=== PATIENT | female | born 1990 | race Hispanic/Latino ===

== ENCOUNTER 2017-12-06 22:44 | Emergency (ER) | payer BC ==
[2017-12-06 23:05] VITALS: RESP 18
[2017-12-07 00:10] LABS: BASO # 0.1 K/uL (0.0-0.2); BASO % 0.9 % (0.0-2.0); EOS # 0.1 K/uL (0.0-0.7); HEMOGLOBIN 12.2 g/dL (12.0-16.0); LYMPH % 28.7 % (20.0-40.0); MEAN CELL VOLUME 94.1 fl (81.0-99.0); MEAN CORPUSCULAR HEMOGLOBIN 33.2 pg (27.0-31.0); MEAN CORPUSCULAR HGB CONC 35.3 g/dL (33.0-37.0); MEAN PLATELET VOLUME 8.3 fl (7.2-11.7); MONO # 0.8 K/uL (0.0-0.8); MONO % 7.4 % (0.0-10.0); NEUT # 6.4 K/uL (1.8-7.0); NRBC % 0.1 % (0.0-0.0); RBC 3.68 Mil/uL (3.80-5.20); RED CELL DISTRIBUTION WIDTH 12.3 % (11.5-14.5); WHITE BLOOD COUNT 10.3 K/uL (4.8-10.8)
[2017-12-07 00:11] LABS: SQUAMOUS EPITHIAL 1 /hpf (0-5); URINE BILIRUBIN NEGATIVE (NEGATIVE); URINE BLOOD MODERATE (NEGATIVE); URINE CLARITY CLEAR (Clear); URINE COLOR STRAW (YELLOW); URINE GLUCOSE (UA) NEG (Normal); URINE LEUKOCYTE ESTERASE NEG Leu/uL (Negative); URINE PROTEIN NEGATIVE (NEGATIVE); URINE UROBILINOGEN 0.2-1.0 mg/dL (0.2-1.0)
[2017-12-07 00:19] LABS: ALB/GLOB RATIO 1.2 (1.0-2.1); ALBUMIN 3.7 g/dL (3.5-5.0); ALT/SGPT 28 U/L (9-52); AST/SGOT 17 U/L (14-36); BLOOD UREA NITROGEN 10 mg/dl (7-17); CALCIUM 9.6 mg/dL (8.4-10.2); GFR AFRICAN-AMERICAN > 60; GFR NON-AFRICAN AMERICAN > 60
--- NOTE | 2017-12-07 01:18 | ED PDOC ---
HPI: Female Pain Time Seen by Provider: 12/06/17 23:00 Chief Complaint (Nursing): Female Genitourinary Chief Complaint (Provider): Female Genitourinary History Per: Patient History/Exam Limitations: no limitations Onset/Duration Of Symptoms: Hrs (earlier tonight) Current Symptoms Are (Timing): Still Present Associated Symptoms: denies: Fever Additional Complaint(s): 27 year old female presents to ED with complaints of vaginal bleeding since earlier tonight and is currently 11 weeks () with no past medical history. Describes the bleeding as light spotting. (-) fever. PCP: Jake Montesinos Abnormal Vaginal Bleeding: Yes : 1 Para: 0 Miscarriage: 0 Past Medical History Reviewed: Historical Data, Nursing Documentation, Vital Signs Vital Signs: Last Vital Signs Temp 97.9 F 12/06/17 23:04 Pulse 78 12/06/17 23:04 Resp 18 12/06/17 23:04 BP 157/87 H 12/06/17 23:04 Pulse Ox 99 12/06/17 23:04 - Medical History PMH: No Chronic Diseases - Surgical History Surgical History: No Surg Hx - Family History Family History: States: Unknown Family Hx - Living Arrangements Living Arrangements: With Family - Social History Current smoker - smoking cessation education provided: No Ex-Smoker (has not smoked in the last 12 months): No Alcohol: None Drugs: Denies - Allergies Allergies/Adverse Reactions: Allergies Allergy/AdvReac Type Severity Reaction Status Date / Time Penicillins Allergy RASH Verified 12/06/17 23:04 Review of Systems ROS Statement: Except As Marked, All Systems Reviewed And Found Negative Constitutional: Negative for: Fever Genitourinary Female: Positive for: Vaginal Bleeding Physical Exam - Reviewed Nursing Documentation Reviewed: Yes Vital Signs Reviewed: Yes - Physical Exam Appears: Positive for: Non-toxic Skin: Positive for: Normal Color, Warm, Dry Eye Exam: Positive for: Normal appearance ENT: Positive for: Normal ENT Inspection Neck: Positive for: Normal, Painless ROM, Supple Cardiovascular/Chest: Positive for: Regular Rate, Rhythm. Negative for: Murmur Respiratory: Positive for: Normal Breath Sounds. Negative for: Respiratory Distress Gastrointestinal/Abdominal: Positive for: Normal Exam, Soft. Negative for: Tenderness Pelvic Exam: Positive for: External Exam Normal (Animal Pathologist: Sharon Leary), Blood, Other (Oss is closed). Negative for: No Cerv. Motion Tender, Tender Adnexa, Tender Uterus Neurologic/Psych: Positive for: Alert, Oriented. Negative for: Motor/Sensory Deficits - Laboratory Results Result Diagrams: 12/06/17 23:56 12/06/17 23:56 - ECG O2 Sat by Pulse Oximetry: 99 (RA) Pulse Ox Interpretation: Normal Medical Decision Making Medical Decision Makin Initial impression: threatened AB Initial plan: * T&S * BETA HCG QUANT * Labs * Urine C&S * UA * US OB PREG, LIMITED 0120 Labs reviewed: no clinically significant abnormality with exception of mild hypokalemia. 0140 US FINDINGS: Fetus: Single live intrauterine with fetus corresponding to gestational age of 11 weeks and 3 days. Obtained heart rate is 164 bpm. Placenta: Small subchorionic hematoma is noted, measuring 2.1 x 1.1 cm. Cervix: Cervix is closed and measures 4.8 cm. Adnexa: Right ovary not identified. Left ovary is normal in size and demonstrates vascular flow. IMPRESSION: 1. Single live intrauterine with fetus corresponding to gestational age of 11 weeks and 3 days. Obtained heart rate is 164 bpm. 2. Small subchorionic hematoma is noted, measuring 2.1 x 1.1 cm. 0200 Patient dw patient the results and answered questions pt is stable for discharge home with directions to follow up with [facility]. ecourage high potassium diet and follow up with your docorin 48 hours. Discussed precautions about bleed w patient. Dx: threatened , subchorionic hematoma Condition: stable Scribe Attestation: Documented by Alexsandra Smith, acting as a scribe for Rosalina Hatfield MD. Provider Scribe Attestation: All medical record entries made by the Scribe were at my direction and personally dictated by me. I have reviewed the chart and agree that the record accurately reflects my personal performance of the history, physical exam, medical decision making, and the department course for this patient. I have also personally directed, reviewed, and agree with the discharge instructions and disposition. Disposition - Clinical Impression Clinical Impression: Threatened , Subchorionic hematoma - Patient ED Disposition Is Patient to be Admitted: No Counseled Patient/Family Regarding: Studies Performed, Diagnosis, Need For Followup - Disposition Disposition: Routine/Home Disposition Time: 02:00 Condition: IMPROVED Additional Instructions: follow up with your obgyn within two days eat a high potassium diet pelvic rest return to the ED with any worsening or concerning symptoms Instructions: Threatened Miscarriage, Threatened Miscarriage (DC) Forms: [employer] ([place])
[2017-12-07 03:19] VITALS: BP 134/70; PULSE 84; TEMP 98.5
[2017-12-07 05:48] VITALS: O2SAT 99
--- NOTE | 2017-12-07 11:27 | US ---
PROCEDURE: OB Pelvic Ultrasound HISTORY: Bleeding in . LMP: 09/17/2017 COMPARISON: None available. FINDINGS: UTERUS: Gestational sac: Single intrauterine gestation: MSD = 5.13cm = 10w 6d pole: CRL = 4.91 cm = 11 w 6d Heart rate: 164 bpm. age (Ultrasound estimated): 11 weeks 3 days 0 weeks 6 days Ghazal-gestational hemorrhage: Small subchorionic hemorrhage = 2.1 x 1.1 cm located along the lower uterus. . . Date of delivery (Ultrasound estimated) : 06/25/2018 Uterus measures cm. Normal in size and appearance. CERVIX: Measures 4.8 cm. Long and closed. No cervical abnormality seen. RIGHT OVARY: Not visualized. LEFT OVARY: Measures approximately 3.3 x1.9 x 2.5 cm. No solid mass. Normal flow. FREE FLUID: None. OTHER FINDINGS: None. IMPRESSION: Single living intrauterine gestation estimated at approximately 11 weeks 3 days 0 weeks 6 days. Heart rate document at 164 BPM. PELON based on average ultrasound age = 0106/25/2018. Small subchorionic hemorrhage as above. . Follow-up OB ultrasound recommended to assess resolution Note that anatomy survey not performed at this early age. Followup level 2 ultrasound could be performed for further evaluation. Right ovary not visualized on this exam Preliminary report provided by overnight radiology service
== END 2017-12-07 02:14 | disposition home or self-care (01) ==
LOC: H.ER 22:44
DX: O20.0 Threatened abortion (principal); O20.8 Other hemorrhage in early pregnancy; O33.7XX0 Maternal care for disproportion due to other fetal deformities, not applicable or unspecified; Z3A.11 11 weeks gestation of pregnancy; Z87.891 Personal history of nicotine dependence; Z88.0 Allergy status to penicillin